=== PATIENT | male | born 1995 | race African-American/Black ===

== ENCOUNTER → 2018-03-09 | Outpatient (CLI) | payer OTHER ==
--- NOTE | ~2018-03-09 | EKG ---
[place] [address] [facility] [address] ELECTROCARDIOGRAM REPORT Name: AUDI DEE [facility] [id number] Admission: 03/09/18 Attend Phys: Luisa Kent MD Discharge: Date of : 89 Report #: [id number] THIS REPORT FOR: //name// [facility] Test Date: 2018-03-09 Test Time: 15:31:42 Pat Name: AUDI DEE Department: Room: Gender: W[employer] Preserver: Eleni MONGE : 1995 Requested By: Luisa Kent Order Number: [id number] MD: Cleve Costello Measurements Intervals Cobb Rate: 71 P: 43 PA: 157 QRS: 2 QRSD: 94 T: -1 QT: 372 QTc: 405 Interpretive Statements Sinus rhythm ST elev, normal early repol pattern No previous ECG available for comparison Electronically Signed On 03-10-2018 8:43:53 [employer] by Cleve Costello [email or web address] <ELECTRONICALLY SIGNED> By: Cleve Costello MD, [facility] 03/10/18 [id number] 1531 Cleve Costello MD, FACC /EPI
== END ==
LOC: CV 14:47
DX: I10 Essential (primary) hypertension (principal)